=== PATIENT | male | born 1950 | race African-American/Black ===

== ENCOUNTER 2020-07-27 20:34 | Emergency (ER) | payer MEDICARE, MEDICAID ==
[~2020-07-27] VITALS: Ht 190.5 cm; Wt 81.6 kg
--- NOTE | 2020-07-27 21:05 | NUR ---
ED Nurse Note: Patient is here for evaluation two weeks post surgery to left elbow. Patient had an appointment for a follow up with , missed his appoitment today. Reports mild tolerable pain to left elbow, mild stiffness, stiches in place. Denies any drainage, fever and chills. left elbow full range of motion.
--- NOTE | 2020-07-27 21:19 | Emergency Room Report ---
History of Present Illness General Chief Complaint: Skin Rash/Abscess Source: Patient Present Illness HPI Disclaimer: Please note that this report is being documented using [employer] technology. This can lead to erroneous entry secondary to incorrect interpretation by the dictating instrument. HPI: 69-year-old male presents for evaluation of elbow wound. Patient had surgical plate removed from his left elbow 1 week ago at [facility]. He missed his follow-up evaluation yesterday. Sent in for evaluation by PMD. He denies wound dehiscence, swelling, drainage, bleeding, swelling, pain, fever, chills or other symptoms. Reports good range of motion. Denies numbness or tingling. He wants his sutures removed. PMH: Reviewed PSH: Left elbow repair and plate removal Allergies: Reviewed Social Hx: Reviewed Allergies: Coded Allergies: No Known Allergies (Unverified , 07/27/20) COVID-19 Screening Contact w/high risk pt: No Experienced COVID-19 symptoms?: No COVID-19 Testing performed [employer]: Yes COVID-19 Screening: Negative COVID-19 COVID-19 Testing Source: [employer] Nursing Documentation-PMH Past Medical History: No History, Except For Review of Systems All Other Systems: negative except mentioned in HPI Physical Exam Vital Signs Date Time Temp Pulse Resp B/P (MAP) Pulse Ox O2 Delivery O2 Flow Rate FiO2 07/27/20 20:41 97.9 110 20 120/80 (93) General: Awake and alert, no acute distress HEENT: NC/AT. EOMI. Resp: Normal work of breathing Skin: Intact. Surgical site on the left upper extremity is clean dry and intact. Appears to be well-healed. No purulent drainage, no wound dehiscence. Sutures are in place MSK: Normal tone and bulk. Moving all extremities. No obvious deformity. No significant tenderness palpation over the medial lateral condyle of the left elbow. Full flexion extension pronation and supination. Neuro: Awake and alert. Mentating appropriately Medical Decision Making Diagnostic Impression: Primary Impression: Encounter for evaluation of wound ER Course Well-appearing 69-year-old male presents for reevaluation of his left elbow surgical sites. They appear clean dry and intact. Believe the suture should stay in at least another 3 to 5 days as there is some areas of skin that can still be pulled apart. Overall though no signs of infection. Labs are largely within normal limits. Patient will be discharged to follow-up with his surgeons and PMD. Will return with new or worsening symptoms. Laboratory Tests Test 07/27/20 21:25 White Blood Count 6.6 K/UL (4.8-10.8) Red Blood Count 4.53 M/UL (4.70-6.10) L Hemoglobin 14.2 G/DL (14.2-18.0) Hematocrit 42.2 % (42.0-52.0) Mean Corpuscular Volume 93 FL (80-99) Mean Corpuscular Hemoglobin 31.3 PG (27.0-31.0) H Mean Corpuscular Hemoglobin Concent 33.6 G/DL (32.0-36.0) Red Cell Distribution Width 14.3 % (11.6-14.8) Platelet Count 206 K/UL (150-450) Mean Platelet Volume 7.6 FL (6.5-10.1) Neutrophils (%) (Auto) 50.8 % (45.0-75.0) Lymphocytes (%) (Auto) 37.0 % (20.0-45.0) Monocytes (%) (Auto) 7.5 % (1.0-10.0) Eosinophils (%) (Auto) 2.8 % (0.0-3.0) Basophils (%) (Auto) 1.9 % (0.0-2.0) Erythrocyte Sedimentation Rate 27 MM/HR (0-20) H Sodium Level 138 MMOL/L (136-145) Potassium Level 3.6 MMOL/L (3.5-5.1) Chloride Level 103 MMOL/L (98-107) Carbon Dioxide Level 27 MMOL/L (21-32) Anion Gap 8 mmol/L (5-15) Blood Urea Nitrogen 19 mg/dL (7-18) H Creatinine 1.4 MG/DL (0.55-1.30) H Estimated Glomerular Filtration Rate > 60 mL/min (>60) Glucose Level 133 MG/DL (74-106) H Calcium Level 8.9 MG/DL (8.5-10.1) C-Reactive Protein, Quantitative < 0.4 mg/dL (0.00-0.90) Last Vital Signs Date Time Temp Pulse Resp B/P (MAP) Pulse Ox O2 Delivery O2 Flow Rate FiO2 07/27/20 20:41 97.9 110 20 120/80 (93) Disposition: HOME, SELF-CARE Condition: Stable Victor Hugo Murillo MD Jul 27, 2020 21:19
[2020-07-27 21:33] VITALS: BP 120/80
[2020-07-27 21:41] LABS: BASOPHILS % (AUTO) 1.9 % (0.0-2.0); EOSINOPHILS % (AUTO) 2.8 % (0.0-3.0); HEMATOCRIT 42.2 % (42.0-52.0); HEMOGLOBIN 14.2 G/DL (14.2-18.0); MEAN CORPUSCULAR VOLUME 93 FL (80-99); MONOCYTES % (AUTO) 7.5 % (1.0-10.0); NEUTROPHILS % (AUTO) 50.8 % (45.0-75.0); PLATELET COUNT 206 K/UL (150-450); RED BLOOD COUNT 4.53 M/UL (4.70-6.10); RED CELL DISTRIBUTION WIDTH 14.3 % (11.6-14.8); WHITE BLOOD COUNT 6.6 K/UL (4.8-10.8)
[2020-07-27 21:48] LABS: ANION GAP 8 mmol/L (5-15); BLOOD UREA NITROGEN 19 mg/dL (7-18); CALCIUM 8.9 MG/DL (8.5-10.1); CARBON DIOXIDE 27 MMOL/L (21-32); CHLORIDE 103 MMOL/L (98-107); CREATININE 1.4 MG/DL (0.55-1.30); POTASSIUM 3.6 MMOL/L (3.5-5.1); SODIUM 138 MMOL/L (136-145)
--- NOTE | 2020-07-27 23:13 | NUR ---
ER DISCHARGE NOTE: Patient is cleared to be discharged per ERMD, pt is aox4, on room air, with stable vital signs. pt was given dc instructions, pt was able to verbalize understanding, pt id band removed. pt is able to ambulate with steady gait. pt took all belongings.
== END 2020-07-27 23:16 | disposition home or self-care (01) ==
LOC: EMR 20:55
DX: Z48.89 Encounter for other specified surgical aftercare (principal); Z98.890 Other specified postprocedural states
CPT/HCPCS: 36415; 80048; 85025; 85651; 86140; 99283